=== PATIENT | male | born 1960 | race Caucasian/White ===

== ENCOUNTER 2018-01-26 11:22 | Emergency (ER) | payer MEDICAID ==
[~2018-01-26] VITALS: Ht 182.9 cm; Wt 110.0 kg
[2018-01-26] MEDS ORDERED: IBUPROFEN 200 MG TABLET PO ONE (12:00)
[2018-01-26] MEDS ORDERED: IBUPROFEN 200 MG TABLET ONE (12:02)
[2018-01-26 12:08] LABS: BASOPHILS # (AUTO) 0.05 x10^3/uL (0-0.1); BASOPHILS % (AUTO) 1 % (0-1); EOSINOPHILS # (AUTO) 0.17 x10^3/uL (0-0.4); EOSINOPHILS % (AUTO) 2 % (1-7); LYMPHOCYTES # (AUTO) 1.15 x10^3/uL (1-3.4); LYMPHOCYTES % (AUTO) 17 % (22-44); MD NO; MEAN CORPUSCULAR HEMOGLOBIN 30.3 pg (27.5-34.5); MEAN CORPUSCULAR HGB CONC 33.1 g/dL (33.2-36.2); MEAN CORPUSCULAR VOLUME 91.5 fL (81-97); MEAN PLATELET VOLUME 9.6 fL (7.4-10.4); MONOCYTES # (AUTO) 0.37 x10^3/uL (0.2-0.8); MONOCYTES % (AUTO) 5 % (2-9); NEUTROPHILS # (AUTO) 5.19 x10^3/uL (1.8-6.8); NEUTROPHILS % (AUTO) 75 % (42-75); PLATELET COUNT 202 x10^3/uL (130-400); RED BLOOD COUNT 4.84 x10^6/uL (4.38-5.82); RED CELL DISTRIBUTION WIDTH 13.8 % (9.4-14.8)
[2018-01-26 12:22] LABS: ALANINE AMINOTRANSFERASE 35 U/L (12-78); ALBUMIN 3.6 g/dL (3.4-5.0); ANION GAP 10 mmol/L (5-15); CALCIUM 8.5 mg/dL (8.5-10.1); CHLORIDE 109 mmol/L (98-107); CREATININE 0.84 mg/dL (0.7-1.3)
[2018-01-26 12:26] LABS: ALKALINE PHOSPHATASE 133 U/L (45-117); BILIRUBIN,TOTAL 0.3 mg/dL (0.2-1.0); TOTAL PROTEIN 7.7 g/dL (6.4-8.2); TROPONIN I < 0.015 ng/mL (0.000-0.045)
[2018-01-26 13:15] VITALS: BP 154/88
== END 2018-01-26 13:29 | disposition home or self-care (01) ==
LOC: ED 12:00
DX: R07.89 Other chest pain (principal); K08.89 Other specified disorders of teeth and supporting structures; I10 Essential (primary) hypertension
CPT/HCPCS: 36415; 71045; 80053; 84484; 85025; 93005; 99285

== ENCOUNTER 2018-02-11 14:46 | Emergency (ER) | payer MEDICAID ==
[~2018-02-11] VITALS: Ht 182.9 cm; Wt 114.7 kg
[2018-02-11 14:53] VITALS: BP 144/96
== END 2018-02-11 15:26 | disposition home or self-care (01) ==
LOC: ED 14:50
DX: I10 Essential (primary) hypertension (principal); Z76.0 Encounter for issue of repeat prescription
CPT/HCPCS: 99283

== ENCOUNTER 2018-02-24 07:47 | Emergency (ER) | payer MEDICAID ==
[~2018-02-24] VITALS: Ht 182.9 cm; Wt 116.3 kg
[2018-02-24] MEDS ORDERED: CLON0.1T PO (08:33)
[2018-02-24] MEDS ORDERED: AMLO10TA6 PO (08:33)
[2018-02-24] MEDS ORDERED: LISI-170 PO (08:33)
[2018-02-24 09:15] VITALS: BP 133/91
== END 2018-02-24 09:35 | disposition home or self-care (01) ==
LOC: ED 09:00
DX: J20.8 Acute bronchitis due to other specified organisms (principal); B97.89 Other viral agents as the cause of diseases classified elsewhere; F17.200 Nicotine dependence, unspecified, uncomplicated; I10 Essential (primary) hypertension
CPT/HCPCS: 71046; 99284

== ENCOUNTER 2018-09-06 00:36 | Emergency (ER) | payer MEDICAID, OTHER ==
[~2018-09-06] VITALS: Ht 182.9 cm; Wt 110.0 kg
[~2018-09-06 00:36] MED LIST: AMLO10TA8 PO; CLON0.1T22 PO; LISI-170 PO
--- NOTE | 2018-09-06 00:43 | NUR ---
Pt ambulated to room with EDT.
--- NOTE | 2018-09-06 00:50 | NUR ---
Dr. Wagner at bedside to evaluate pt. Pt states "I basically came in to get checked out for my shoulder, but I also went to the bathroom a couple hours ago and there was blood so I thought I'd tell you guys about that too." Pt reports that he was "wrestling" a few weeks to a month ago when his shoulder initially began hurting. Pt has been seen here previously for this and was told that it was likely a rotator cuff injury and to follow up, however pt has not established primary care here in [place]. Pt reports that the blood in his stool is dark red and that he had a single episode 2 days ago and then a single episode tonight. Pt reports that his stool in between these 2 episodes were hard and that he has been constipated and pushing hard to have BMs. Pt denies any abd pain, N/V, or rectal pain.
--- NOTE | 2018-09-06 01:02 | NUR ---
Pt ambulated to imaging, with tech.
[2018-09-06] MEDS ORDERED: IBUPROFEN 600 MG TABLET ONE (01:40)
[2018-09-06] MEDS ORDERED: ACETAMINOPHEN 325 MG TABLET ONE (01:40)
--- NOTE | 2018-09-06 01:46 | NUR ---
Assist RN: re-evaluation done. patient discharged with instruction. verbalized understanding.
[2018-09-06 01:47] VITALS: BP 109/75
== END 2018-09-06 01:49 | disposition home or self-care (01) ==
LOC: ED 01:28
DX: M25.512 Pain in left shoulder (principal); K59.00 Constipation, unspecified; I10 Essential (primary) hypertension; F17.200 Nicotine dependence, unspecified, uncomplicated; X50.0XXA Overexertion from strenuous movement or load, initial encounter; Y93.89 Activity, other specified; Y92.89 Other specified places as the place of occurrence of the external cause; Y99.8 Other external cause status
CPT/HCPCS: 99283

== ENCOUNTER 2019-04-08 07:03 | Observation (INO) | payer MEDICAID ==
[~2019-04-08] VITALS: Ht 185.4 cm; Wt 88.0 kg
[2019-04-08] MEDS ORDERED: FAMOTIDINE 20 MG/2 ML IV ONE (07:30)
[2019-04-08] MEDS ORDERED: SODIUM CHLORIDE 0.9% 1,000ML IVBOLUS ONE (07:30)
[2019-04-08] MEDS ORDERED: ONDANSETRON 2MG/ML, 2ML IVPush ONE (07:30)
[2019-04-08] MEDS ORDERED: ONDANSETRON 2MG/ML, 2ML ONE (07:33)
[2019-04-08] MEDS ORDERED: FAMOTIDINE 20 MG/2 ML ONE (07:33)
[2019-04-08 07:53] LABS: BASOPHILS # (AUTO) 0.02 x10^3/uL (0-0.1); BASOPHILS % (AUTO) 0 % (0-1); EOSINOPHILS # (AUTO) 0.06 x10^3/uL (0-0.4); EOSINOPHILS % (AUTO) 1 % (1-7); LYMPHOCYTES # (AUTO) 1.41 x10^3/uL (1-3.4); LYMPHOCYTES % (AUTO) 14 % (22-44); MD NO; MEAN CORPUSCULAR HEMOGLOBIN 28.2 pg (27.5-34.5); MEAN CORPUSCULAR HGB CONC 32.4 g/dL (33.2-36.2); MEAN PLATELET VOLUME 9.2 fL (7.4-10.4); MONOCYTES # (AUTO) 0.55 x10^3/uL (0.2-0.8); MONOCYTES % (AUTO) 6 % (2-9); NEUTROPHILS # (AUTO) 7.84 x10^3/uL (1.8-6.8); NEUTROPHILS % (AUTO) 79 % (42-75); PLATELET COUNT 250 x10^3/uL (130-400); RED BLOOD COUNT 4.81 x10^6/uL (4.38-5.82); RED CELL DISTRIBUTION WIDTH 15.3 % (9.4-14.8)
[2019-04-08 08:03] LABS: ALBUMIN 3.2 g/dL (3.4-5.0); ANION GAP 6 mmol/L (5-15); CALCIUM 9.1 mg/dL (8.5-10.1); CHLORIDE 107 mmol/L (98-107)
--- NOTE | 2019-04-08 08:06 | NUR ---
PT TO ED WITH N/V/D "WATERY" SINCE MIDNIGHT, C/O SIMILAR EPISODE LAST WEEK. IV ESTABLISHED AND BLOOD DRAW AND GIVEN TO METAL SPRAYING MACHINE OPERATOR AT BEDSIDE. PT MEDICATED PER MAR AND IVF STARTED. PT PLACED ON MONITOR, NOTED ARRHYTHMIA AND EKG PERFORMED. PT STATED "SOMETIMES I DO HAVE PAIN IN MY CHEST BUT IT GOES AWAY", PROVIDER NOTIFIED. CALL LIGHT WTIHIN REACH.
[2019-04-08 08:07] LABS: ALANINE AMINOTRANSFERASE 34 U/L (12-78); ALKALINE PHOSPHATASE 172 U/L (45-117)
[2019-04-08 08:20] LABS: TROPONIN I < 0.015 ng/mL (0.000-0.045)
--- NOTE | 2019-04-08 08:22 | NUR ---
TASK RN: PT RESTING ON GURNEY. NADN. YANEZ, PRIMARY RN NOTIFIED THIS RN ABOUT PT HAVING MULTIPLE PVC'S. SPOKE W/ BERTO DONAHUE. NEW ORDER FOR MG+ LEVEL.
--- NOTE | 2019-04-08 08:57 | NUR ---
PT UNABLE TO PRODUCE URINE OR STOOL SAMPLE, PROVIDER NOTIFIED. NO NEED FOR STRAIGHT CATH AT THIS TIME PT NOT HAVING URINARY SXS.
[2019-04-08] MEDS ORDERED: SODIUM CHLORIDE 0.9% 1,000 ML IV SCH ×2 (09:53→10:00)
[2019-04-08] MEDS ORDERED: LORazepam 2 MG/ML, 1ML IVPush PRN (10:00)
[2019-04-08] MEDS ORDERED: NICOTINE 7 MG/24 HR PATCH.TD24 TD SCH (10:00)
[2019-04-08] MEDS ORDERED: ASPIRIN 325 MG TABLET EC PO SCH (10:00)
[2019-04-08] MEDS ORDERED: ACETAMINOPHEN 325 MG TABLET PO PRN (10:00)
[2019-04-08] MEDS ORDERED: LABETALOL 5MG/ML, 20ML IVPush PRN (10:00)
[2019-04-08] MEDS ORDERED: ENOXAPARIN 40 MG/0.4 ML SQ SCH (10:00)
[2019-04-08] MEDS ORDERED: hydrALAzine 20 MG/ML, 1ML IVPush PRN (10:00)
[2019-04-08] MEDS ORDERED: NITROGLYCERIN 0.4 MG BOTTLE (25 TABS) SL PRN (10:00)
[2019-04-08] MEDS ORDERED: METOPROLOL TARTRATE 50 MG TABLET PO SCH (10:00)
--- NOTE | 2019-04-08 10:05 | NUR ---
PT REPORT FROM TING SCHREIBER. PT CARE TO BE ASSUMED. HOSPITALIST BS. PT DROWSY, ANSWERING QUESTIONS IN COMPLETE SENTENCES, NO RESP DISTRESS. CARDIAC & VS MONITORING CONTINUING - ARRHYTHMIA NOTED. NS LITER INFUSED.
--- NOTE | 2019-04-08 10:06 | NUR ---
PT TO BE ADMITTED, ADMITTING MD AT BEDSIDE
--- NOTE | 2019-04-08 10:16 | NUR ---
UNABLE TO COMPLETE MED REC. 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 REPORTS LAST DOSE WAS ONE MONTH AGO.
[2019-04-08 10:18] VITALS: BP 113/92
[2019-04-08] MEDS ORDERED: ENOXAPARIN 40 MG/0.4 ML ONE (10:24)
[2019-04-08] MEDS ORDERED: POTASSIUM CHLORIDE 20 MEQ TAB.ER.PRT PO ONE (10:30)
[2019-04-08 10:56] LABS: CHOLESTEROL, TOTAL 168 mg/dL (140-239); TRIGLYCERIDES 93 mg/dL (50-200); VLDL CHOLESTEROL 19 mg/dL (0-25)
[2019-04-08 10:59] LABS: CHOL/HDL RATIO 3.2; HDL CHOL % 32 % (26-37); HDL CHOLESTEROL (DIRECT) 53 mg/dL (40-60); LDL CHOLESTEROL,CALCULATED 96 mg/dL (54-169); LDL/HDL RATIO 1.8 (0.5-3.0); TROPONIN I < 0.015 ng/mL (0.000-0.045)
--- NOTE | 2019-04-08 11:06 | NUR ---
SECOND LITER NS HUNG; TO INFUSE AT 250ML/HR. LOVENOX GIVEN PER EMAR.
[2019-04-08] MEDS ORDERED: ASPIRIN 325 MG TABLET EC ONE (11:33)
[2019-04-08] MEDS ORDERED: POTASSIUM CHLORIDE 20 MEQ TAB.ER.PRT ONE (11:33)
[2019-04-08] MEDS ORDERED: METOPROLOL TARTRATE 25 MG TABLET ONE (11:33)
--- NOTE | 2019-04-08 11:54 | NUR ---
VOIDED URINE SPECIMEN COLLECTED; WILL BE SENT TO LAB
[2019-04-08 12:13] LABS: MICROSCOPIC INDICATED
[2019-04-08 12:24] LABS: CULTURE INDICATED? NO
--- NOTE | 2019-04-08 12:52 | NUR ---
PT REPORT TO BREAK RN: [facility] TRANSFERRED.
--- NOTE | 2019-04-08 13:23 | NUR ---
task RN note: pt dc'd own piv, requesting to leave AMA "because I'm detoxing off of herion and can't do that here." hospitalist Jeremie notified. pt a&ox4. ok'd pt to leave AMA. pt ambulatory to discharge with steady gait, nadn. propellant charge loader and primary RN notified.
[2019-04-08] MEDS ORDERED: METOPROLOL TARTRATE 25 MG TABLET PO SCH (19:30)
[2019-04-08] MEDS ORDERED: ATORVASTATIN 80 MG TABLET PO SCH (21:00)
[2019-04-09] MEDS ORDERED: AMLODIPINE 10 MG TAB PO SCH (09:00)
== END 2019-04-08 13:20 | disposition home or self-care (01) ==
LOC: EDIP 08:04 → ED 08:04 → UNDOADMIN 09:54 → EDIP 09:54 → ED 13:20 → EDSTATUS 15:04
PROVIDERS: ADMIT Emergency Medicine; ATTEND Emergency Medicine
DX: R11.2 Nausea with vomiting, unspecified (principal); R55 Syncope and collapse; R07.89 Other chest pain; R73.9 Hyperglycemia, unspecified; R19.7 Diarrhea, unspecified; E86.0 Dehydration; R94.31 Abnormal electrocardiogram [ECG] [EKG]; I10 Essential (primary) hypertension; Z79.899 Other long term (current) drug therapy; Z87.891 Personal history of nicotine dependence
CPT/HCPCS: 36415; 71045; 80053; 80061; 80307; 81001; 83036; 83690; 83735; 84484; 85025; 93005; 96361; 96372; 96374; 96375; 99284; G0378; J1650; J2405; J3490; J7030

== ENCOUNTER 2019-06-22 21:10 | Emergency (ER) | payer MEDICAID ==
--- NOTE | 2019-06-22 22:51 | NUR ---
Patient called in lobby three times, first time soon after registration ~[id number], followed up soon after, fifteen minutes later and five minutes after. Patient has not responded to multiple attempts to contact in lobby.
[2019-06-23] MEDS ORDERED: ONDANSETRON 2MG/ML, 2ML ONE (04:34)
[2019-06-23] MEDS ORDERED: MORPHINE SULFATE 4 MG/ML, 1ML ONE (04:34)
[2019-06-23] MEDS ORDERED: MAALOX/HYOSCYAMINE/LIDOCAINE 45 ML BTL ONE (04:34)
== END 2019-06-22 22:56 | disposition left against medical advice (07) ==
LOC: ED 22:50
DX: R06.00 Dyspnea, unspecified (principal); Z53.21 Procedure and treatment not carried out due to patient leaving prior to being seen by health care provider

== ENCOUNTER 2020-07-21 14:10 | Inpatient (IN) | payer MEDICAID, OTHER ==
[~2020-07-21] VITALS: Ht 182.9 cm; Wt 87.0 kg
[~2020-07-21 14:10] MED LIST changes: +AMLO-211 PO; -AMLO10TA8 PO
[2020-07-21] MEDS ORDERED: ONDANSETRON 2MG/ML, 2ML ONE (14:44)
[2020-07-21] MEDS ORDERED: FAMOTIDINE 20 MG/2 ML ONE (14:45)
[2020-07-21] MEDS ORDERED: LORazepam 2 MG/ML, 1ML ONE (14:45)
[2020-07-21] MEDS ORDERED: SODIUM CHLORIDE 0.9% 1,000ML IVBOLUS ONE ×2 (15:00→16:30)
[2020-07-21] MEDS ORDERED: ONDANSETRON 2MG/ML, 2ML IVPush ONE (15:00)
[2020-07-21] MEDS ORDERED: FAMOTIDINE 20 MG/2 ML IVPush ONE (15:00)
[2020-07-21] MEDS ORDERED: LORazepam 2 MG/ML, 1ML IVPush ONE (15:00)
[2020-07-21] MEDS ORDERED: SODIUM CHLORIDE FLUSH 10ML SYR IVF ONE (15:00)
[2020-07-21 15:08] LABS: BASOPHILS % (AUTO) 0 % (0-1); EOSINOPHILS % (AUTO) 0 % (1-7); LYMPHOCYTES % (AUTO) 7 % (22-44); MEAN CORPUSCULAR HEMOGLOBIN 27.7 pg (27.5-34.5); MEAN CORPUSCULAR HGB CONC 33.3 g/dL (33.2-36.2); MEAN PLATELET VOLUME 8.9 fL (7.4-10.4); MONOCYTES % (AUTO) 9 % (2-9); NEUTROPHILS % (AUTO) 84 % (42-75); PLATELET COUNT 303 x10^3/uL (130-400); RED BLOOD COUNT 6.61 x10^6/uL (4.38-5.82); RED CELL DISTRIBUTION WIDTH 15.7 % (9.4-14.8)
[2020-07-21 15:09] LABS: ALANINE AMINOTRANSFERASE 18 U/L (12-78); ALBUMIN 3.5 g/dL (3.4-5.0); ANION GAP 8 mmol/L (5-15); CALCIUM 9.6 mg/dL (8.5-10.1); CHLORIDE 88 mmol/L (98-107)
[2020-07-21 15:14] LABS: ALKALINE PHOSPHATASE 210 U/L (45-117); BILIRUBIN,TOTAL 0.6 mg/dL (0.2-1.0); TOTAL PROTEIN 9.3 g/dL (6.4-8.2); TROPONIN I < 0.015 ng/mL (0.000-0.045)
[2020-07-21] MEDS ORDERED: DILTIAZEM 5 MG/ML, 5ML ONE ×2 (15:22→16:12)
[2020-07-21] MEDS ORDERED: DIGOXIN 0.25 MG/ML, 2ML ONE (15:22)
[2020-07-21] MEDS ORDERED: MAGNESIUM SULFATE PMX 2GM/50ML 50 ML ONE (15:23)
[2020-07-21] MEDS ORDERED: MAGNESIUM SULFATE PMX 2GM/50ML 50 ML IV ONE (15:30)
[2020-07-21] MEDS ORDERED: DILTIAZEM 5 MG/ML, 5ML IV ONE ×2 (15:30→16:30)
[2020-07-21] MEDS ORDERED: DIGOXIN 0.25 MG/ML, 2ML IVPush ONE (15:30)
[2020-07-21 15:49] LABS: MD SCAN
[2020-07-21] MEDS ORDERED: ASPIRIN 81 MG TABLET CHEW ONE (16:38)
[2020-07-21] MEDS ORDERED: ASPIRIN 81 MG TABLET CHEW PO ONE (17:00)
--- NOTE | 2020-07-21 17:58 | NUR ---
PHONE REPORT TO TING ALVARADO
[2020-07-21] MEDS ORDERED: ONDANSETRON 2MG/ML, 2ML IVPush PRN (18:00)
[2020-07-21] MEDS ORDERED: THIAMINE 200 MG in SODIUM CHLORIDE 0.9% 50 ML IV ONE (18:00)
[2020-07-21] MEDS ORDERED: DILTIAZEM 5 MG/ML, 5ML IVPush PRN (18:00)
[2020-07-21] MEDS ORDERED: POTASSIUM CHLORIDE 20 MEQ, MAGNESIUM SULFATE 1 GM, MVI ADULT 10 ML, THIAMINE 200 MG, FO... IV SCH (18:00)
[2020-07-21] MEDS ORDERED: LORazepam 1MG TABLET PO PRN ×4 (18:00)
[2020-07-21] MEDS ORDERED: LORazepam 2 MG/ML, 1ML IV PRN ×5 (18:00)
[2020-07-21] MEDS ORDERED: SODIUM CHLORIDE FLUSH 10ML SYR IVF PRN (18:00)
[2020-07-21 18:27] LABS: MICROSCOPIC AUTO
[2020-07-21 18:37] LABS: AMPHETAMINE SCREEN, URINE Negative (Negative); BARBITURATE SCREEN, URINE Negative (Negative); BENZODIAZEPINE SCREEN, URINE Positive (Negative); CANNABINOID SCREEN, URINE Negative (Negative); COCAINE SCREEN, URINE Negative (Negative); METHADONE SCREEN, URINE Negative (Negative); OPIATE SCREEN, URINE Positive (Negative)
[2020-07-21 18:52] VITALS: BP 163/102
[2020-07-21 20:50] LABS: TROPONIN I < 0.015 ng/mL (0.000-0.045)
[2020-07-21] MEDS: LORazepam 0.5MG TABLET PO PRN (21:46)
[2020-07-21] MEDS: SODIUM CHLORIDE 0.9% 1,000 ML IV SCH (21:46)
[2020-07-21] MEDS: POTASSIUM CHLORIDE 20 MEQ, MAGNESIUM SULFATE 1 GM, THIAMINE 200 MG, FOLIC ACID 1 MG in ... IV SCH (22:14)
[2020-07-22 01:53] VITALS: BP 159/98
[2020-07-22 02:28] LABS: TROPONIN I < 0.015 ng/mL (0.000-0.045)
[2020-07-22 05:13] LABS: ALBUMIN 2.9 g/dL (3.4-5.0); ANION GAP 3 mmol/L (5-15); CALCIUM 8.5 mg/dL (8.5-10.1); CHLORIDE 97 mmol/L (98-107)
[2020-07-22 05:18] LABS: ALANINE AMINOTRANSFERASE 17 U/L (12-78); ALKALINE PHOSPHATASE 170 U/L (45-117); BILIRUBIN,TOTAL 0.6 mg/dL (0.2-1.0); CREATININE 0.97 mg/dL (0.7-1.3); TOTAL PROTEIN 7.8 g/dL (6.4-8.2)
[2020-07-22 05:19] LABS: BASOPHILS % (AUTO) 1 % (0-1); EOSINOPHILS % (AUTO) 0 % (1-7); LYMPHOCYTES % (AUTO) 15 % (22-44); MEAN CORPUSCULAR HEMOGLOBIN 27.7 pg (27.5-34.5); MEAN CORPUSCULAR HGB CONC 32.6 g/dL (33.2-36.2); MEAN PLATELET VOLUME 9.3 fL (7.4-10.4); MONOCYTES % (AUTO) 11 % (2-9); NEUTROPHILS % (AUTO) 73 % (42-75); PLATELET COUNT 259 x10^3/uL (130-400); RED BLOOD COUNT 5.76 x10^6/uL (4.38-5.82); RED CELL DISTRIBUTION WIDTH 15.9 % (9.4-14.8)
[2020-07-22 05:22] LABS: MD NO
[2020-07-22 08:00] VITALS: BP 181/106
[2020-07-22] MEDS ORDERED: VANCOMYCIN PER PHARMACY MC PRN (08:00)
[2020-07-22] MEDS ORDERED: PHARMACOKINETIC MONITORING MC PRN (08:30)
[2020-07-22] MEDS ORDERED: PHARMACOKINETIC CONSULTATION MC ONE (08:30)
[2020-07-22 08:48] LABS: HCT (SEDRATE) 50.2 % (39.2-51.8)
[2020-07-22] MEDS ORDERED: VANCOMYCIN 2,000 MG in SODIUM CHLORIDE 0.9% 500 ML IV ONE (09:00)
[2020-07-22] MEDS: AMPICILLIN/SULBACTAM 1,500 MG in SODIUM CHLORIDE 0.9% 50 ML IV SCH ×2 (10:24→16:26)
[2020-07-22] MEDS: DIGOXIN 0.125 MG TABLET PO SCH (10:25)
[2020-07-22] MEDS: LISINOPRIL 40 MG TABLET PO SCH (10:25)
[2020-07-22] MEDS: ENOXAPARIN 40 MG/0.4 ML SQ SCH (10:25)
[2020-07-22] MEDS: LORazepam 0.5MG TABLET PO PRN ×2 (10:33→22:01)
[2020-07-22 13:57] VITALS: BP 152/98
[2020-07-22] MEDS: POTASSIUM CHLORIDE 20 MEQ, MAGNESIUM SULFATE 1 GM, THIAMINE 200 MG, FOLIC ACID 1 MG in ... IV SCH (18:41)
[2020-07-22 19:43] VITALS: BP 146/84
[2020-07-22] MEDS ORDERED: VANCOMYCIN 1,700 MG in SODIUM CHLORIDE 0.9% 250 ML IV SCH (21:00)
[2020-07-22] MEDS: ACETAMINOPHEN 325 MG TABLET PO PRN (22:01)
[2020-07-23] VITALS (11 sets, daily range): BP systolic 131–188; BP diastolic 76–112
[2020-07-23] MEDS: AMPICILLIN/SULBACTAM 1,500 MG in SODIUM CHLORIDE 0.9% 50 ML IV SCH ×2 (00:51→05:54)
[2020-07-23] MEDS ORDERED: LABETALOL 5MG/ML, 20ML IVPush ONE (01:30)
[2020-07-23 05:46] LABS: BASOPHILS % (AUTO) 1 % (0-1); EOSINOPHILS % (AUTO) 1 % (1-7); LYMPHOCYTES % (AUTO) 20 % (22-44); MEAN CORPUSCULAR HEMOGLOBIN 27.8 pg (27.5-34.5); MEAN CORPUSCULAR HGB CONC 33.1 g/dL (33.2-36.2); MEAN PLATELET VOLUME 8.6 fL (7.4-10.4); MONOCYTES % (AUTO) 11 % (2-9); NEUTROPHILS % (AUTO) 67 % (42-75); PLATELET COUNT 204 x10^3/uL (130-400); RED BLOOD COUNT 5.28 x10^6/uL (4.38-5.82); RED CELL DISTRIBUTION WIDTH 15.6 % (9.4-14.8)
[2020-07-23] MEDS: LORazepam 0.5MG TABLET PO PRN ×2 (05:49→17:41)
[2020-07-23 05:52] LABS: MD NO
[2020-07-23] MEDS: ACETAMINOPHEN 325 MG TABLET PO PRN (05:54)
[2020-07-23 05:59] LABS: ALBUMIN 2.7 g/dL (3.4-5.0); ANION GAP 5 mmol/L (5-15); CALCIUM 8.5 mg/dL (8.5-10.1); CHLORIDE 102 mmol/L (98-107)
[2020-07-23 06:04] LABS: ALANINE AMINOTRANSFERASE 20 U/L (12-78); ALKALINE PHOSPHATASE 141 U/L (45-117); BILIRUBIN,TOTAL 0.6 mg/dL (0.2-1.0); CREATININE 0.73 mg/dL (0.7-1.3); TOTAL PROTEIN 7.1 g/dL (6.4-8.2)
[2020-07-23] MEDS: SODIUM CHLORIDE 0.9% 1,000 ML IV SCH (06:44)
[2020-07-23] MEDS: DIGOXIN 0.125 MG TABLET PO SCH (08:43)
[2020-07-23] MEDS: LISINOPRIL 40 MG TABLET PO SCH (08:43)
[2020-07-23] MEDS: ENOXAPARIN 40 MG/0.4 ML SQ SCH (08:44)
[2020-07-23] MEDS ORDERED: DILTIAZEM 120 MG CAP.ER.12H PO SCH (09:00)
[2020-07-23] MEDS: AMLODIPINE 10 MG TAB PO SCH (10:24)
[2020-07-23] MEDS ORDERED: VANCOMYCIN PER PHARMACY MC PRN (14:00)
[2020-07-23] MEDS ORDERED: CEFTRIAXONE PMX 2GM/50ML 50 ML IVPB SCH (14:00)
[2020-07-23] MEDS: VANCOMYCIN 1,700 MG in SODIUM CHLORIDE 0.9% 250 ML IV SCH (16:12)
[2020-07-23] MEDS: POTASSIUM CHLORIDE 20 MEQ, MAGNESIUM SULFATE 1 GM, THIAMINE 200 MG, FOLIC ACID 1 MG in ... IV SCH (21:06)
[2020-07-23] MEDS ORDERED: ALUMINUM/MAG/SIMETHICONE 30 ML UDC PO PRN (23:30)
[2020-07-23] MEDS ORDERED: CALCIUM CARBONATE 500 MG TAB.CHEW PO PRN (23:30)
[2020-07-24] MEDS: ACETAMINOPHEN 325 MG TABLET PO PRN ×2 (02:24→08:59)
[2020-07-24] MEDS: VANCOMYCIN 1,700 MG in SODIUM CHLORIDE 0.9% 250 ML IV SCH (04:11)
[2020-07-24 05:38] LABS: BASOPHILS % (AUTO) 0 % (0-1); EOSINOPHILS % (AUTO) 2 % (1-7); LYMPHOCYTES % (AUTO) 22 % (22-44); MEAN CORPUSCULAR HEMOGLOBIN 27.9 pg (27.5-34.5); MONOCYTES % (AUTO) 9 % (2-9); NEUTROPHILS % (AUTO) 67 % (42-75); PLATELET COUNT 224 x10^3/uL (130-400); RED BLOOD COUNT 5.37 x10^6/uL (4.38-5.82); RED CELL DISTRIBUTION WIDTH 15.4 % (9.4-14.8)
[2020-07-24 05:39] LABS: MD NO
[2020-07-24 05:49] LABS: ALANINE AMINOTRANSFERASE 23 U/L (12-78); ALBUMIN 2.8 g/dL (3.4-5.0); ANION GAP 5 mmol/L (5-15); CALCIUM 8.3 mg/dL (8.5-10.1); CHLORIDE 108 mmol/L (98-107); CREATININE 0.69 mg/dL (0.7-1.3)
[2020-07-24 05:50] LABS: ALKALINE PHOSPHATASE 138 U/L (45-117); BILIRUBIN,TOTAL 0.4 mg/dL (0.2-1.0); TOTAL PROTEIN 7.1 g/dL (6.4-8.2)
[2020-07-24 08:50] VITALS: BP 162/86
[2020-07-24] MEDS: DIGOXIN 0.125 MG TABLET PO SCH (08:58)
[2020-07-24] MEDS: LISINOPRIL 40 MG TABLET PO SCH (08:58)
[2020-07-24] MEDS: ENOXAPARIN 40 MG/0.4 ML SQ SCH (08:58)
[2020-07-24] MEDS: AMLODIPINE 10 MG TAB PO SCH (08:59)
[2020-07-24] MEDS ORDERED: [UNRECOGNIZED DRUG - OTHER] (10:32)
[2020-07-24] MEDS ORDERED: DIGO125T85 PO (10:32)
[2020-07-24] MEDS ORDERED: AMOX1TAB64 PO ×2 (10:32)
[2020-07-24] MEDS ORDERED: CLIN300C9 PO (17:32)
== END 2020-07-24 13:10 | disposition home or self-care (01) | DRG 308 ==
LOC: ED 16:50 → EDIP 16:58 → ED 17:39 → 5SO 17:59 → EDIP 18:03 → 5SO 18:55
PROVIDERS: ADMIT Hospitalist; ATTEND Family Medicine
DX: I48.91 Unspecified atrial fibrillation (principal); G92 Toxic encephalopathy; L03.116 Cellulitis of left lower limb; I10 Essential (primary) hypertension; I16.0 Hypertensive urgency; J32.9 Chronic sinusitis, unspecified; F10.20 Alcohol dependence, uncomplicated; F15.90 Other stimulant use, unspecified, uncomplicated; R73.9 Hyperglycemia, unspecified; D72.829 Elevated white blood cell count, unspecified; S70.912A Unspecified superficial injury of left hip, initial encounter; Y93.89 Activity, other specified; Y92.89 Other specified places as the place of occurrence of the external cause; Y99.8 Other external cause status
CPT/HCPCS: 36415; 70450; 71045; 76700; 80053; 80307; 81001; 83605; 83735; 84145; 84443; 84484; 85025; 85651; 86140; 87040; 87070; 87077; 87186; 87205; 93005; 93306; 99291; G0378; J0696; J1650; J2405; J3370; J3411; J3475; J3480; J0295; J1160; J2060; J7030; J7040; J7050

== ENCOUNTER 2020-07-27 16:05 | Observation (INO) | payer MEDICAID, OTHER ==
[~2020-07-27] VITALS: Ht 182.9 cm; Wt 81.0 kg
[~2020-07-27 16:05] MED LIST changes: +AMOX1TAB64 PO; +CLIN300C9 PO; +DIGO125T85 PO; +[UNRECOGNIZED DRUG - OTHER]
[2020-07-27] MEDS ORDERED: NALOXONE 0.4 MG/ML, 1ML ONE (16:41)
[2020-07-27] MEDS ORDERED: NALOXONE 1 MG/ML, 2ML ONE (16:41)
--- NOTE | 2020-07-27 16:48 | NUR ---
BROUGHT IN BY GF, STATES PT HAS NOT BEEN ACTING LIKE HIMSELF SINCE LAST NIGHT AFTER BEING RELEASED FROM [facility]. PT AWAKE AND ALERT, ANSWERING ORIENTATION QUESTIONS CORRECTLY., PT WILL FALL ASLEEP MID CONVO AND EYES ROLLS BACK IN HEAD., PT HX OF IV DRUG USE, LAST USE THIS AM. VERY HARD STICK, MULTIPLE RNS AT [facility] WORKING ON IV PLACEMENT. DR REYNOLDS ALREADY AT BEDSIDE.
--- NOTE | 2020-07-27 17:05 | NUR ---
0.[address] REYNOLDS VERBAL ORDERS. PT MORE REPSONSIVE AND ALERT. IV PLACED AND BOLUS OF NS STARTED. PT NO LONGER FALLING ASLEEP. DR REYNOLDS AT BEDSIDE
--- NOTE | 2020-07-27 17:12 | NUR ---
DR REYNOLDS AT BEDSIDE. VERBAL ORDER TO GIVE 0.04 MG NARCAN DUE TO PTS O2 SAT OF 88% RA AND RR OF 10-12 A MIN. PT COMPLAINTS OF NAUSEA, O2 OF 93% AFTER GIVEN AND RR OF 16.
[2020-07-27 17:16] LABS: ALANINE AMINOTRANSFERASE 26 U/L (12-78); ALBUMIN 3.4 g/dL (3.4-5.0); ANION GAP 10 mmol/L (5-15); BASOPHILS % (AUTO) 0 % (0-1); CALCIUM 8.9 mg/dL (8.5-10.1); CHLORIDE 103 mmol/L (98-107); CREATININE 3.38 mg/dL (0.7-1.3); EOSINOPHILS % (AUTO) 0 % (1-7); LYMPHOCYTES % (AUTO) 7 % (22-44); MEAN CORPUSCULAR HEMOGLOBIN 27.5 pg (27.5-34.5); MEAN CORPUSCULAR HGB CONC 31.9 g/dL (33.2-36.2); MEAN PLATELET VOLUME 9.4 fL (7.4-10.4); MONOCYTES % (AUTO) 5 % (2-9); NEUTROPHILS % (AUTO) 88 % (42-75); PLATELET COUNT 313 x10^3/uL (130-400); RED BLOOD COUNT 5.11 x10^6/uL (4.38-5.82); RED CELL DISTRIBUTION WIDTH 15.7 % (9.4-14.8)
[2020-07-27 17:18] LABS: ALKALINE PHOSPHATASE 136 U/L (45-117); BILIRUBIN,TOTAL 0.3 mg/dL (0.2-1.0); TOTAL PROTEIN 7.6 g/dL (6.4-8.2)
[2020-07-27] MEDS ORDERED: ONDANSETRON 2MG/ML, 2ML ONE (17:26)
[2020-07-27] MEDS ORDERED: SODIUM CHLORIDE 0.9% 1,000ML IVBOLUS ONE (17:30)
[2020-07-27] MEDS ORDERED: ONDANSETRON 2MG/ML, 2ML IVPush ONE (17:30)
[2020-07-27] MEDS ORDERED: NALOXONE 0.4 MG/ML, 1ML IVPush ONE (17:30)
[2020-07-27] MEDS ORDERED: LACTATED RINGERS 1,000 ML IVBOLUS ONE ×2 (17:30→18:30)
--- NOTE | 2020-07-27 17:41 | NUR ---
late entry, prior to giving narcan pts gf at bedside crying hysterically repeating "don't give him narcan, don't give him narcan". GF states she thinks he wasn't using while in longterm and is concerned about symptoms related to giving narcan. pts gf educated on importance of giving narcan and sympton management, pts gf agreeable to give med. After narcan given pts gf now saying "thank you" to staff and is stating pt is acting more like himself.
[2020-07-27 17:47] LABS: MD SCAN
[2020-07-27] MEDS ORDERED: VANCOMYCIN PER PHARMACY MC PRN (18:00)
[2020-07-27] MEDS ORDERED: CEFTRIAXONE PMX 1GM/50ML 50 ML IV ONE (18:00)
[2020-07-27] MEDS ORDERED: CEFTRIAXONE PMX 1GM/50ML 50 ML ONE (18:21)
[2020-07-27] MEDS ORDERED: CLINDAMYCIN PMX 600MG/50ML 50 ML ONE (18:21)
[2020-07-27] MEDS ORDERED: CLINDAMYCIN PMX 600MG/50ML 50 ML IV ONE (18:30)
--- NOTE | 2020-07-27 18:43 | NUR ---
[facility] AT BEDSIDE. [facility] AT BEDSIDE,VERBAL ORDER TO GIVE 0.08 MG NARCAN. BOTH MD AWARE OF BP DROPPING SLOWLY. PATIENT AWARE OF PLAN TO BE ADMITTED TO CCU.
[2020-07-27] MEDS ORDERED: NALOXONE 4 MG in SODIUM CHLORIDE 0.9% 246 ML IV PRN (19:16)
[2020-07-27] MEDS ORDERED: HEPARIN 5,000 UNITS/ML, 1ML SQ SCH (19:30)
[2020-07-27] MEDS ORDERED: ONDANSETRON 2MG/ML, 2ML IVPush PRN (19:30)
[2020-07-27] MEDS ORDERED: LACTATED RINGERS 1,000 ML IV SCH (19:30)
[2020-07-27] MEDS ORDERED: hydrALAzine 20 MG/ML, 1ML IVPush PRN (19:30)
--- NOTE | 2020-07-27 20:18 | NUR ---
report given to jesus manuel contreras
[2020-07-27 20:30] VITALS: BP 99/54
--- NOTE | 2020-07-27 20:53 | NUR ---
PT REFUSING TO BE ADMITTED, CONCERED ABOUT GF BEING ALONE FOR THE NIGHT SINCE THEY ARE HOMELESS. PT EDUCATED ON RISKS OF LEAVING AMA AND STILL STATES HE WANTS TO LEAVE. [facility] DR HUERTA CALLED AND UPDATED, PT IS A&OX4 AND WALKS WITH STEADY GAIT. IV DC'D. PT LEFT WITH ALL PERSONAL BELONGINGS.
[2020-07-27 20:58] LABS: MICROSCOPIC INDICATED
[2020-07-27] MEDS ORDERED: CLINDAMYCIN 300 MG CAPSULE PO SCH (21:00)
[2020-07-28] MEDS ORDERED: DIGOXIN 0.125 MG TABLET PO SCH (09:00)
== END 2020-07-27 21:08 | disposition home or self-care (01) ==
LOC: ED 18:00 → UNDOADMIN 18:32 → EDIP 18:32 → ED 21:08 → ORIP 21:08 → ED 21:14
PROVIDERS: ADMIT Emergency Medicine; ATTEND Emergency Medicine
DX: A41.9 Sepsis, unspecified organism (principal); T40.1X1A Poisoning by heroin, accidental (unintentional), initial encounter; N17.9 Acute kidney failure, unspecified; G93.40 Encephalopathy, unspecified; I10 Essential (primary) hypertension; I48.20 Chronic atrial fibrillation, unspecified; R41.82 Altered mental status, unspecified; R94.31 Abnormal electrocardiogram [ECG] [EKG]; R73.9 Hyperglycemia, unspecified; Z79.899 Other long term (current) drug therapy
CPT/HCPCS: 36415; 71045; 80053; 81001; 83036; 83605; 83690; 84443; 85025; 87040; 93005; 96361; 96365; 96375; 99291; G0378; J0696; J2310; J2405; J7030; J7120; 96374; J7050